=== PATIENT | female | born 1990 | race African-American/Black ===

== ENCOUNTER 2019-08-31 15:36 | Emergency (ER) | payer SELFPAY ==
--- NOTE | ~2019-08-31 | CT_ITS ---
EXAMINATION: CT abdomen pelvis w con INDICATION: Epigastric abdominal pain TECHNIQUE: Computed tomographic images of the abdomen and pelvis were obtained after the administrati on of 100 cc of Omnipaque 350 intravenous contrast. The dose-length product (DLP) was 208.79 mGy-cm. Automated exposure control and iterative reconstruction technique were employed. COMPARISON: None available FINDINGS: The lung bases are clear. The heart size is normal. The liver, spleen, pancreas, gallbladde r, and adrenal glands are normal. The kidneys are unremarkable. No pathologically enlarged abdominal or pelvic lymph nodes are identified. There is no free intraperitoneal gas or evidence of bowel obstr uction. A small amount of free fluid in the pelvis is likely physiologic. IMPRESSION: 1. No CT correlate for the patient's symptoms. Reviewed, dictated and finalized at location A.
[2019-08-31 15:38] VITALS: BP 100/71; PULSE 89; RESP 18; TEMP 36.3; O2SAT 100
[2019-08-31 16:24] LABS: Basophils Absolute Auto 0.1 K/mm3 (0.0-0.1); Basophils Percent Auto 0.4 % (0.2-1.2); Hematocrit 39.5 % (37.0-47.0); Hemoglobin 13.2 g/dL (12.0-15.0); Immature Granulocyte Absolute 0.06 K/mm3 (0.00-0.031); Immature Granulocyte Percent A 0.4 % (0-0.5); Lymphocytes Absolute Auto 1.34 K/mm3 (0.9-3.2); Mean Corpuscular HGB Conc 33.4 g/dl (32-36); Mean Corpuscular Hemoglobin 29.8 pg (26-34); Mean Corpuscular Volume 89.2 fl (80-100); Mean Platelet Volume 10.6 fl (7.4-10.4); Monocytes Absolute Auto 0.4 K/mm3 (0.1-0.6); Monocytes Percent Auto 2.9 % (2.6-8.5); Neutrophils Absolute Auto 11.6 K/mm3 (1.3-6.7); Neutrophils Percent Auto 86.3 % (45.5-73.1); Platelet Count Result 225 k/mm3 (150-375); Red Blood Count 4.43 M/mm3 (4.2-5.4); Red Cell Distribution Width 13.4 % (11.5-14.5); White Blood Count 13.4 K/mm3 (4.5-10.0)
[2019-08-31 16:38] LABS: Albumin Level 4.7 g/dL (3.5-5.1); Alkaline Phosphatase 75 U/L (38-126); Aspartate Amino Transferase 22 U/L (14-36); Bilirubin,Total 0.4 mg/dL (0.2-1.3); Blood Urea Nitrogen 13 mg/dL (7-17); Calcium 9.8 mg/dL (8.4-10.2); Carbon Dioxide 15 mmol/L (22-30); Chloride 110 mmol/L (98-107); Estimated CRCL calculation 82 ml/min; Estimated Glomerular Filt Rate > 60; Glucose 132 mg/dL (65-105); Lipase 161 U/L (23-300); Potassium 3.9 mmol/L (3.4-5.0); Sodium 138 mmol/L (137-145)
[2019-08-31 17:08] LABS: Alanine Aminotransferase 19 U/L (4-35)
[2019-08-31] MEDS: SODIUM CHLORIDE 0.9% IV 1,000 ML 999 ML IV CONT (17:12)
[2019-08-31] MEDS: ONDANSETRON INJ 4 MG/2 ML VIAL IV PUSH (17:12)
[2019-08-31] MEDS: BELLADONNA ALK/PHENOB ELIX 10 ML, MAG HYDROX/ALUMINUM HYD/SIMETH 30 ML, LIDOCAINE HCL 2... PO (17:13)
[2019-08-31 18:30] VITALS: BP 108/70; PULSE 80; RESP 20; O2SAT 100
--- NOTE | 2019-08-31 18:38 | ED.ABDPAIN ---
HPI - Abdominal Pain General Chief Complaint: Abdominal Pain Stated Complaint: think i have food poisoning, i can't stand Time Seen by Provider: 08/31/19 16:16 Source: patient Mode of arrival: ambulatory Limitations: no limitations History of Present Illness HPI narrative: Patient presents with chief complaint of epigastric pain that began this morning. Patient states that she has food poisoning from either pastaor a plum that she ate last night and this morning. Patient reports she has nausea and vomiting accompanying the abdominal pain. Patient has not taken anything to alleviate her symptoms. Patient denies having past history of abdominal issues or nausea and vomiting. Patient denies chance of due to homosexuality. Patient denies fever, chills, cough, shortness of breath, chest pain. Related Data Allergies Allergy/AdvReac Type Severity Reaction Status Date / Time No Known Allergies Allergy Verified 08/31/19 15:41 Review of Systems Review of Systems: Narrative: CONSTITUTIONAL: Denies fever, chills, or sweats. EYES: Denies visual changes, redness, or discharge. ENT: Denies rhinorrhea, congestion, sore throat, or otalgia. CARDIOVASCULAR: Denies chest pain, palpitations, or edema. RESPIRATORY: Denies cough or dyspnea. GASTROINTESTINAL: Reports abdominal pain, nausea, vomiting, denies diarrhea. GENITOURINARY: Denies dysuria or hematuria. SKIN: Denies rash or itching. MUSCULOSKELETAL: Denies back pain, joint pain, or myalgia. NEUROLOGIC: Denies headache, numbness, dizziness, or weakness. PSYCHIATRIC: Denies anxiety or depression. Exam Narrative: Exam Narrative: GENERAL: Well-appearing, well-nourished. Patient constantly moving around reporting nausea and discomfort. HEAD: Normocephalic, atraumatic. EYES: PERRLA and EOMI. ENT: Nares clear, no rhinorrhea or epistaxis. Mucous membranes moist. Oropharynx without tonsillar hypertrophy exudate or other lesions. Tongue ring noted. Bilateral TMs pearly musa nonbulging NECK: Supple. No adenopathy or masses. No carotid bruits or JVD CHEST: Clear to auscultation. No respiratory distress. No wheezes rales or rhonchi HEART: Regular rate and rhythm. ABDOMEN: Soft, reports tenderness with even light palpation of epigastric area, nondistended, normal active bowel sounds. EXTREMITIES: Normal range of motion. No edema. SKIN: Warm, dry, no rash. NEURO: No focal deficits. Alert and oriented x3. PSYCH: Normal mood and affect. Course Vital Signs Vital signs: Vital Signs Temperature 97.4 F L 08/31/19 15:38 Pulse Rate 89 08/31/19 15:38 Respiratory Rate 18 08/31/19 15:38 Blood Pressure 100/71 08/31/19 15:38 Pulse Oximetry 100 08/31/19 15:38 Temperature 97.4 F L 08/31/19 15:38 Pulse Rate 54 L 08/31/19 21:09 Respiratory Rate 20 08/31/19 21:09 Blood Pressure 135/78 08/31/19 21:09 Pulse Oximetry 100 08/31/19 21:09 MDM - Abdominal Pain MDM Narrative Medical decision making narrative: Patient work-up is essentially negative other than Slightly elevated white blood cell count and UTI. There are no findings on imaging for patient's epigastric discomfort. Patient will be given Bentyl, Macrobid for UTI, And Zofran. Patient states she is ready to be discharged home at this time. Patient directed to follow up with her primary care for reevaluation within 1 week if her symptoms persist. Patient instructed to follow-up sooner if there are any questions or concerns. Patient instructed to return to emergency department if she has any emergent symptoms. Differential Diagnosis Differential diagnosis: Likely abdominal pain, acute appendicitis, diverticulitis, gastroenteritis, pancreatitis and small bowel obstruction Lab Data Result diagrams: 08/31/19 16:12 08/31/19 16:11 Labs: Lab Results 08/31/19 08/31/19 08/31/19 Range/Units 16:11 16:12 18:55 WBC 13.4 H (4.5-10.0) K/mm3 RBC 4.43 (4.2-5.4) M/mm3 Hgb 13.2 (
[2019-08-31 19:05] LABS: Add Urine Microscopic? YES; Appearance Urine Clear (Clear); Bacteria Urine Trace /hpf; Bilirubin Urine Negative (Negative); Blood Urine Negative (Negative); Color Urine Yellow (Yellow); Glucose Urine UA Negative (Negative); Ketones Urine 2+ mg/dL (Negative); Leukocyte Esterase Ur Trace LEU/UL (Negative); Mucus Urine Heavy /lpf; Nitrate Urine Positive (Negative); Protein Urine 2+ mg/dL (Negative); Squamous Epithelial Cell Urine Moderate /hpf (Few); Urobilinogen Urine Negative mg/dL (<2.0); WBC Urine 0-3 /hpf
[2019-08-31 19:07] LABS: Specific Grav Ur 1.034 (1.001-1.035)
[2019-08-31] MEDS: KETOROLAC 15 MG/ML VIAL (*BKC) IV PUSH (20:34)
[2019-08-31 21:09] VITALS: BP 135/78; PULSE 54; RESP 20; O2SAT 100
== END 2019-08-31 21:17 | disposition home or self-care (01) ==
PROVIDERS: Emergency Medicine; Emergency Provider Emergency Medicine
DX: R10.13 Epigastric pain (principal); N30.00 Acute cystitis without hematuria
CPT/HCPCS: 36415; 74177; 80053; 81001; 81025; 83690; 85025; 96361; 96365; 96375; 99284; A9270; J0131; J0696; J1885; J2405; J7030; Q9967